=== PATIENT | female | born 1945 | race Caucasian/White ===

== ENCOUNTER → 2018-09-16 | Outpatient (CLI) | payer MEDICARE ==
[~2018-09-16] MED LIST: ANAS1 PO; Anastrozole1 GM PO; BUDE6HFA INH; CITA20 PO; DILT120ERA PO; DOCU100 PO; DULO30 PO; ENAL10 PO; ERGO400 PO; FURO20 PO; Flagyl500 MG PO; IRON PO; LEVFLO500 PO; LEVSOD100 PO; Loperamide2 MG PO; METRIBP PO; Norco 5-325 Ta1 EACH PO; Norco 7.5-3251 EACH PO; OXYACE7.5T PO; POTA8 PO; PRAV20 PO; PROBIOTIC1 EAC1 PO; TIOT18 INH; TOCO400 PO; VITAMIN B122500 MCG PO; Zofran Odt4 MG PO
[2018-09-17 14:05] LABS: Stool Occult Bld Immuno 1 Negative (NEGATIVE)
== END ==
LOC: LAB EV 13:30
PROVIDERS: Student in an Organized Health Care Education/Training Program
DX: D53.9 Nutritional anemia, unspecified (principal)
CPT/HCPCS: 82274

== ENCOUNTER 2019-01-17 12:55 | Inpatient (IN) | payer MEDICARE ==
[~2019-01-17] VITALS: Ht 170.2 cm; Wt 74.8 kg
[~2019-01-17 12:55] MED LIST changes: -LEVSOD100 PO; +LEVSOD125 PO
[2019-01-17] MEDS ORDERED: CARB100ER PO (13:40)
[2019-01-17] MEDS ORDERED: VERA80 PO (13:43)
[2019-01-17] MEDS ORDERED: TRAM50 PO (13:43)
[2019-01-17 15:42] LABS: Thyroid Stimulating Hormone 0.873 uIU/mL (0.360-4.800); Troponin I <0.015 ng/mL (0.000-0.040)
[2019-01-17 16:06] LABS: BASOPHILS ABSOLUTE AUTO 0.07 K/mm3 (0.00-0.23); BASOPHILS PERCENT AUTO 0 % (0-2); EOSINOPHILS ABSOLUTE AUTO 0.03 K/mm3 (0.00-0.68); EOSINOPHILS PERCENT AUTO 0 % (0-6); Hematocrit 26.9 % (33.0-51.0); Hemoglobin 8.6 g/dL (11.5-16.0); IMMATURE GRAN ABSOLUTE AUTO 0.35 K/mm3 (0.00-0.10); IMMATURE GRAN PERCENT AUTO 2 % (0-1); LYMPHOCYTES ABSOLUTE AUTO 0.44 K/mm3 (0.84-5.20); LYMPHOCYTES PERCENT AUTO 2 % (21-46); MONOCYTES ABSOLUTE AUTO 2.04 K/mm3 (0.16-1.47); MONOCYTES PERCENT AUTO 9 % (4-13); Mean Corpuscular HGB 32.6 pg (26.0-34.0); Mean Platelet Volume 9.5 fL (9.1-12.4); NEUTROPHILS ABSOLUTE AUTO 19.12 K/mm3 (1.96-9.15); NEUTROPHILS PERCENT AUTO 87 % (41-73); Platelet Count 391 K/mm3 (150-400); RDW Coefficient Variation 12.5 % (11.7-14.2); RDW Standard Deviation 47.1 fL (35.1-46.3); Red Blood Cell Count 2.64 M/mm3 (3.80-5.20); White Blood Cell Count 22.05 K/mm3 (4.00-11.30)
[2019-01-17 16:24] LABS: Mean Corpuscular Volume 102 fL (80-100)
[2019-01-17 16:36] LABS: Source, Urine Voided
[2019-01-17 16:50] LABS: Blood, Urine 2+ (Neg); Glucose Qualitative, Urine Neg (Neg); Ketones, Urine 2+ (Neg); Leukocyte Esterase, Urine 1+ (Neg); Nitrite, Urine Neg (Neg); Protein, Urine 2+ (Neg); Urobilinogen, Urine 1+ (Normal)
[2019-01-17 16:59] LABS: Bilirubin, Urine 2+ (Neg)
[2019-01-17 17:00] LABS: Appearance, Urine Clear (Clear); Color, Urine Yellow (P-Yellow); Granular Casts 0-2 /lpf (0)
[2019-01-17 17:02] LABS: Bacteria Few /hpf; Squamous Epithelial Cells Rare /hpf (Few)
--- NOTE | 2019-01-17 22:00 | NUR ---
PT TO ICU 3 FROM ED. PT PLEASANT, ALERT, ORIENTED, AND SLIGHTLY CONFUSED. PT ABLE TO STAND AND PIVOT WITH 1-PERSON ASSIST TO USE BEDSIDE COMMODE. PT TIRES EASILY AND IS DYSPNEIC WITH ACTIVITY. PT CURRENTLY ON 3L NC WITH O2 SATS IN THE MID 90'S, 3L O2 USED @ BASELINE AT HOME. PT UP TO BEDSIDE COMMODE AFTER INCONTINENT STOOL. PT STATES SHE HAS HAD DIARRHEA FOR SEVERAL MONTHS NOW BUT THAT SHE "HADN'T THOUGHT ANYTHING OF IT" UNTIL TODAY. PT'S STOOL IS WATERY AND GREEN WITH NO SIGNS OF BLOOD. PT'S STOMACH DISTENDED AND PAINFUL WITH PALPATION, PT STATES THAT SHE "DIDN'T NOTICE IT WAS DISTENDED UNTIL TODAY". PT IS POOR HISTORIAN AND IS UNABLE TO ANSWER QUESTIONS REGARDING HER CURRENT PRESCRIPTIONS OR MEDICAL HISTORY. PT STATES THAT SHE LIVES WITH HER SISTER AND [id number] AND THAT HER SISTER "KNOWS ALL OF THAT STUFF". PT TACHYCARDIC, ALL OTHER VSS. SEE ADMISSION ASSESSMENT AND HISTORY FOR FURTHER INFORMATION.
[2019-01-18 03:11] LABS: C DIFFICILE BY DNA AMP Positive (Negative)
[2019-01-18 03:24] LABS: BASOPHILS ABSOLUTE AUTO 0.07 K/mm3 (0.00-0.23); BASOPHILS PERCENT AUTO 0 % (0-2); EOSINOPHILS ABSOLUTE AUTO 0.08 K/mm3 (0.00-0.68); EOSINOPHILS PERCENT AUTO 0 % (0-6); Hematocrit 29.5 % (33.0-51.0); Hemoglobin 9.1 g/dL (11.5-16.0); IMMATURE GRAN ABSOLUTE AUTO 0.43 K/mm3 (0.00-0.10); IMMATURE GRAN PERCENT AUTO 2 % (0-1); LYMPHOCYTES ABSOLUTE AUTO 0.37 K/mm3 (0.84-5.20); LYMPHOCYTES PERCENT AUTO 2 % (21-46); MONOCYTES ABSOLUTE AUTO 2.99 K/mm3 (0.16-1.47); MONOCYTES PERCENT AUTO 14 % (4-13); Mean Corpuscular HGB 32.3 pg (26.0-34.0); Mean Corpuscular HGB Conc 30.8 g/dL (31.5-36.5); Mean Platelet Volume 9.1 fL (9.1-12.4); NEUTROPHILS ABSOLUTE AUTO 17.74 K/mm3 (1.96-9.15); NEUTROPHILS PERCENT AUTO 82 % (41-73); Platelet Count 384 K/mm3 (150-400); RDW Coefficient Variation 12.6 % (11.7-14.2); RDW Standard Deviation 48.6 fL (35.1-46.3); Red Blood Cell Count 2.82 M/mm3 (3.80-5.20); White Blood Cell Count 21.68 K/mm3 (4.00-11.30)
[2019-01-18 03:25] LABS: Mean Corpuscular Volume 105 fL (80-100)
[2019-01-18 03:50] LABS: Percent Saturation 8.2 % (15.0-50.0)
[2019-01-18 03:58] LABS: Alanine Aminotransfer (ALT/SGP 15 U/L (12-78); Albumin, Blood 2.1 g/dL (3.4-5.0); Albumin/Globulin Ratio 0.6 (0.8-1.8); Alk Phos 135 U/L (50-136); Anion Gap 11 mmol/L (6-16); Aspartate Aminotrans (AST/SGOT 20 U/L (12-37); Bilirubin, Total 0.3 mg/dL (0.1-1.0); Blood Urea Nitrogen 32 mg/dL (8-24); Bun/Creatinine Ratio 21.3 (12.0-20.0); CO2, Blood 22 mmol/L (21-32); Calcium, Blood 7.9 mg/dL (8.5-10.1); Chloride, Blood 99 mmol/L (98-108); Globulin, Blood 3.3 g/dL (2.2-4.0); Glomerular Filtration Rate 36 (60-); Glucose, Blood 145 mg/dL (70-99); Potassium, Blood 3.5 mmol/L (3.5-5.5); Sodium, Blood 132 mmol/L (136-145); Total Protein, Blood 5.4 g/dL (6.4-8.2)
--- NOTE | 2019-01-18 05:15 | NUR ---
CALL TO HOSPITALIST REGARDING PT'S C-DIF+ RESULT. PT PLACED IN CONTACT PRECAUTIONS AND ORDERS FOR ORAL VANCO STARTED. DISCUSSED PT'S INTERMITTENT HYPOTENSION, DR. HERRERA TO DEFER TO [facility] FOR BP MAINTENANCE.
--- NOTE | 2019-01-18 06:04 | NUR ---
SHIFT SUMMARY NO ACUTE CHANGES SINCE ADMISSION TO ICU. PT CONTINUES TO HAVE DIARRHEA-CONTACT PRECAUTIONS IN PLACE D/T C-DIF+ STOOL SAMPLE. PT HAS PERIODS OF HYPOTENSION AND HAS BEEN TACHYCARDIC OVERNIGHT. SATS IN THE MID TO UPPER 90'S ON 3L NC, SLIGHT EXPIRATORY WHEEZE HEARD WHILE SLEEPING. SEE PREVIOUS SHIFT NOTES. WILL REPORT TO DAYSHIFT NURSE.
--- NOTE | 2019-01-18 07:30 | NUR ---
ASSUMED CARE: PT RESTING QUIETLY IN BED AT THIS TIME. 2L O2 IN PLACE, SATTING 99%. ATTEMPTED TO TITRATE OFF BUT PT DESATURATED INTO 80S. REPLACED ON 1 L VIA NC. NO FURTHER NEEDS OR CONCERNS
--- NOTE | 2019-01-18 10:49 | NUR ---
PT WAS ASSISTED TO BSC. 2 DIARRHEA STOOL THIS SHIFT. GRAIN HANDLER SUGGESTED RECTAL TUBE PLACEMENT. ASSESSED PT AND NOTED SEVERAL LARGE HEMORRHOIDS. DECIDED TO CONTINUE TO WATCH SO TO NOT GIVE EXTRA TRAUMA. PT'S SISTER CALLED AND RECIEVED UPDATE. NO FURTHER NEEDS AT THIS TIME.
--- NOTE | 2019-01-18 13:58 | NUR ---
PT'S SISTER CAME BY TO SEE PT AND WAS GIVEN UPDATE ABOUT CARE PLAN AND CURRENT ILLNESS. ALSO DISCUSSED PT'S HOME MEDS WITH SISTER AND WAS PROVIDED WITH NAME OF PHARMACY. CALL TO [employer] TO HAVE MED LIST FAXED. NO FURTHER NEEDS OR CONCERNS AT THIS TIME.
[2019-01-18] MEDS ORDERED: HYDCHL12.5 PO (14:13)
--- NOTE | 2019-01-18 18:43 | NUR ---
SHIFT SUMMARY: PT RECIEVING IV NUTRITION DUE TO POOR APPETITE FOR LAST FEW DAYS. CDIFF WITH PO ANTIBIOTICS GIVEN, FREQUENT BOWEL MOVEMENTS. SISTER GIVEN UPDATES AND WAS HERE OFF AND ON DURING THIS SHIFT. PT HAS BEEN RESTING MOST OF DAY. NO FURTHER CHANGES OR NEEDS AT THIS TIME.
--- NOTE | 2019-01-18 21:46 | NUR ---
ASSUMED CARE OF PT, REPORT RCV'D FROM MIGUELANGEL MANZANO. PT ALERT/ORIENTED BUT APPEARS WITHDRAWN. PT ANSWERS YES/NO QUESTIONS AND SEEMS UNINTERESTED IN ASSISTING WITH CARE. RECTAL TUBE INSERTED AT BEGINNING OF SHIFT D/T PT'S CONTINUED LIQUID STOOL, INCONTINENCE, AND PT'S DYSPNEA WITH EXERTION. D5WNS @50ML/HR, CLINIMIX @75 ML/HR, LIPIDS @20ML/HR. ALL VSS. PT DENIES NEEDS AT THIS TIME. SEE FULL SHIFT ASSESSMENT.
--- NOTE | 2019-01-19 01:48 | NUR ---
PT WAS YELLING OUT "SUSHANT" (HER SISTER), WHEN ASKED IF SHE NEEDED HELP WITH ANYTHING PT RESPONDED "I JUST WANTED TO SEE IF MY SISTER WAS HOME", I REMINDED PT THAT SHE WAS IN THE HOSPITAL AND SHE STATED "I AM? I DON'T EVEN KNOW HOW I GOT HERE". I REORIENTED HER TO TIME/PLACE/SITUATION.
[2019-01-19 03:34] LABS: BASOPHILS ABSOLUTE AUTO 0.11 K/mm3 (0.00-0.23); BASOPHILS PERCENT AUTO 1 % (0-2); EOSINOPHILS ABSOLUTE AUTO 0.11 K/mm3 (0.00-0.68); EOSINOPHILS PERCENT AUTO 1 % (0-6); Hematocrit 29.4 % (33.0-51.0); Hemoglobin 8.9 g/dL (11.5-16.0); IMMATURE GRAN PERCENT AUTO 3 % (0-1); LYMPHOCYTES ABSOLUTE AUTO 0.48 K/mm3 (0.84-5.20); LYMPHOCYTES PERCENT AUTO 3 % (21-46); MONOCYTES ABSOLUTE AUTO 2.17 K/mm3 (0.16-1.47); MONOCYTES PERCENT AUTO 12 % (4-13); Mean Corpuscular HGB 31.8 pg (26.0-34.0); Mean Corpuscular HGB Conc 30.3 g/dL (31.5-36.5); Mean Corpuscular Volume 105 fL (80-100); Mean Platelet Volume 9.3 fL (9.1-12.4); NEUTROPHILS ABSOLUTE AUTO 14.91 K/mm3 (1.96-9.15); NEUTROPHILS PERCENT AUTO 81 % (41-73); Platelet Count 439 K/mm3 (150-400); RDW Coefficient Variation 12.8 % (11.7-14.2); RDW Standard Deviation 49.2 fL (35.1-46.3); White Blood Cell Count 18.38 K/mm3 (4.00-11.30)
[2019-01-19 03:56] LABS: Anion Gap 7 mmol/L (6-16); Blood Urea Nitrogen 31 mg/dL (8-24); Bun/Creatinine Ratio 30.1 (12.0-20.0); CO2, Blood 24 mmol/L (21-32); Calcium, Blood 7.8 mg/dL (8.5-10.1); Chloride, Blood 103 mmol/L (98-108); Creatinine, Blood 1.03 mg/dL (0.40-1.00); Glomerular Filtration Rate 55 (60-); Glucose, Blood 139 mg/dL (70-99); Magnesium, Blood 1.8 mg/dL (1.6-2.4); Phosphorus, Blood 2.7 mg/dL (2.5-4.9); Potassium, Blood 3.4 mmol/L (3.5-5.5); Sodium, Blood 134 mmol/L (136-145); Triglycerides 146 mg/dL (30-160)
--- NOTE | 2019-01-19 06:41 | NUR ---
SHIFT SUMMARY PT IS MUCH MORE ALERT/ORIENTED AND IN GOOD SPIRITS THIS MORNING. PT ABLE TO STATE THAT SHE WAS "AT [facility] BECAUSE OF HER STOMACH" BUT THOUGHT SHE WAS IN "[place] OR [place]". EARLIER IN SHIFT PT WAS CONFUSED ON LOCATION AND SITUATION. (SEE PREVIOUS NOTE) PT TAKING SMALL SIPS OF WATER AND TOLERATING WELL. RECTAL TUBE PATENT, WATERY GREEN STOOL NOTICED IN TUBE AND SMALL AMOUNT IN BAG. PT INCONTINENT OF URINE ON 2 OCCASIONS, ATTENDS IN PLACE. PT REMAINS TACHYCARDIC, BP STABLE AND WNL, ALL OTHER VSS. WILL REPORT TO DAYSHIFT NURSE.
--- NOTE | 2019-01-19 10:14 | NUR ---
0730: CARE ASSUMED, ASSESSMENT COMPLETED. HR 110'S AT THIS TIME, PT DENIES CHEST PAIN/PRESSURE, OTHER VSS. LS CTA, DIM IN BASES, SPO2 >90% ON 2L/NC, PT SOB WITH EXERTION. ABD PAIN MINIMAL, PT STATES ONLY PRESENT WITH PALPATION. D5W 50ML/HR, CLINIMIX 75ML/HR. PT ALERT, ORIENTED TO SELF ONLY, APPROPRIATE AT THIS TIME. ATTENDS CHANGED. 0830: PO MEDICATIONS TOLERATED WELL, PT REFUSING BREAKFAST STATING SHE IS NOT HUNGRY. STATUS REMAINS UNCHANGED. 1000: PT CONFUSED, EXPERIENCING VISUAL HALLUCINATIONS, DC'D OWN IV WITH TIP INTACT. NEW IV INSERTED, FLAGYL RESUMED, POTASSIUM INFUSING. PT REORIENTED, DENIES PAIN, NAUSEA, OR C/O. HR 110, VSS. PT DENIES SOB AT REST. PT REPOSITIONED, SISTER UPDATED ON PT STATUS. SISTER REPORTS PT IS USUALLY ORIENTED TO SELF AND SITUATION AT BASELINE, DENIES PT HAVING HALLUCINATIONS.
--- NOTE | 2019-01-19 13:40 | NUR ---
1215: ATTENDS CHANGED, PT UP TO CHAIR FOR LUNCH WITH 1 PERSON ASSIST. PURSED LIP BREATHING AFTER ACTIVITY, NO DESAT, O2 2L/NC. 1330: PT DRANK MOST OF HER ENSURE, ATE NO OTHER ITEMS OFF OF TRAY. LINENS CHANGED, PT ASSISTED BACK TO BED, BEDBATH GIVEN, NO DESAT WITH ACTIVITY. SISTER AT BEDSIDE TO VISIT, PT TIRED AFTER ACTIVITY, RESTING WITH EYES CLOSED AT THIS TIME. VSS.
--- NOTE | 2019-01-19 16:09 | NUR ---
1500: DR. MCCARTHY AT BEDSIDE, NEW ORDERS RECEIVED. SPOKE WITH SUSHANT, PT'S SISTER. PT SLEEPING AT THIS TIME, HR 100-110 SIT, OTHER VSS. 1610: OT AT BEDSIDE FOR EVAL, PT ALERT, CONFUSED BUT COOPERATIVE. NO HALLUCINATIONS NOTED SINCE THIS MORNING. VSS, PT DENIES PAIN OR NAUSEA AT THIS TIME.
--- NOTE | 2019-01-19 17:33 | NUR ---
1715: REPORT GIVEN TO MIGUELANGEL DE LOS SANTOS. RECTAL TUBE REMOVED PER DR. MCCARTHY, PT TOLERATED WELL. ATTENDS IN PLACE, LIQUID STOOL OUTPUT SMALL THIS SHIFT. PT TO ROOM 312 AT THIS TIME, DENIES ABD PAIN OR NAUSEA, SOB WITH EXERTION, SPO2 93% 2L/NC WITH EXERTION. HR 100-110 SIT. MEDS AND BELONGINGS SENT WITH PT.
--- NOTE | 2019-01-20 04:12 | NUR ---
SHIFT SUMMARY: 73 Y/O OBESE FEMALE RESTED COMFORTABLY ALL SHIFT, PT INCONTINENT LOOSE GREEN STOOLS (CLEANSED UP BY STAFF) AND IS CURRENTLY RECEIVING VANCOMYCIN ORAL EVERY 6 HOURS, DENIES PAIN OR NAUSEA, REQUIRES ASSISTANCE FROM STAFF TO REPOSITION IN BED, TELEMETRY REFLECTS SINUS TACHYCARDIA WITH FIRST DEGREE BUNDLE BRANCH BLOCK, ALERT AND ORIENTED X 4, BED ALARM APPLIED, BED LOW POSITION, CALL LIGHT AT SIDE. CONTACT PRECAUTIONS MAINTAINED FOR C-DIFF.
[2019-01-20 05:06] LABS: Hematocrit 27.1 % (33.0-51.0); Hemoglobin 8.6 g/dL (11.5-16.0); Mean Corpuscular HGB 31.5 pg (26.0-34.0); Mean Corpuscular HGB Conc 31.7 g/dL (31.5-36.5); Mean Platelet Volume 9.2 fL (9.1-12.4); Platelet Count 447 K/mm3 (150-400); RDW Coefficient Variation 12.7 % (11.7-14.2); RDW Standard Deviation 45.7 fL (35.1-46.3); Red Blood Cell Count 2.73 M/mm3 (3.80-5.20); White Blood Cell Count 14.65 K/mm3 (4.00-11.30)
[2019-01-20 05:13] LABS: Mean Corpuscular Volume 99 fL (80-100)
[2019-01-20 05:46] LABS: Alanine Aminotransfer (ALT/SGP 17 U/L (12-78); Albumin, Blood 1.8 g/dL (3.4-5.0); Albumin/Globulin Ratio 0.7 (0.8-1.8); Alk Phos 93 U/L (50-136); Anion Gap 8 mmol/L (6-16); Aspartate Aminotrans (AST/SGOT 11 U/L (12-37); Bilirubin, Total 0.1 mg/dL (0.1-1.0); Blood Urea Nitrogen 36 mg/dL (8-24); Bun/Creatinine Ratio 38.9 (12.0-20.0); CO2, Blood 25 mmol/L (21-32); Calcium, Blood 7.6 mg/dL (8.5-10.1); Chloride, Blood 101 mmol/L (98-108); Creatinine, Blood 0.93 mg/dL (0.40-1.00); Globulin, Blood 2.7 g/dL (2.2-4.0); Glomerular Filtration Rate >60 (60-); Glucose, Blood 119 mg/dL (70-99); Magnesium, Blood 2.1 mg/dL (1.6-2.4); Phosphorus, Blood 2.5 mg/dL (2.5-4.9); Potassium, Blood 3.8 mmol/L (3.5-5.5); Sodium, Blood 134 mmol/L (136-145); Total Protein, Blood 4.5 g/dL (6.4-8.2)
[2019-01-20 06:07] LABS: BAND PERCENT MAN 9 % (0-8); BASOPHILS PERCENT MAN 0 % (0-2); EOSINOPHILS ABSOLUTE MAN 0.58 K/mm3 (0.00-0.68); EOSINOPHILS PERCENT MAN 4 % (0-6); LYMPHOCYTES ABSOLUTE MAN 0.87 K/mm3 (0.84-5.20); LYMPHOCYTES PERCENT MAN 6 % (21-46); METAMYELOCYTE ABSOLUTE MAN 0.14 K/mm3 (0.00-0.00); METAMYELOCYTE PERCENT MAN 1 % (0-0); MONOCYTES ABSOLUTE MAN 1.17 K/mm3 (0.16-1.47); MONOCYTES PERCENT MAN 8 % (4-13); MYELOCYTE ABSOLUTE MAN 0.29 K/mm3 (0.00-0.00); MYELOCYTE PERCENT MAN 2 % (0-0); NEUTROPHILS ABSOLUTE MAN 11.57 K/mm3 (1.96-9.15); SEG NEUTROPHILS PERCENT MAN 70 % (41-73); TOTAL CELLS COUNTED 100
--- NOTE | 2019-01-20 17:32 | NUR ---
Palliative Spiritual Care intial visit: Mrs. Carr was alone in room and welcoming of companioship. She tells me she is normally healthy and is hospitalized b/c of "stomach bug." She tells me she feels better and is hopeful to return home soon. She lives with her brother and sister. They are good support. Mrs. Arceo declined needs or concerns. She is non-zoroastrianism, but responded well to encouragement and affirmation of care. I will remain available.
--- NOTE | 2019-01-20 18:06 | NUR ---
SHIFT SUMMARY BILLY WAS CALM AND COOPERATIVE THIS SHIFT. SHE WAS FORGETFUL AND SLIGHTLY CONFUSED, BUT ORIENTED WHEN GIVEN LOTS OF TIME TO ANSWER. 4 BM THIS SHIFT, CONTINENT/INCONTINENT. AO1 TO BSC. ON 2 L OXYGEN. WORKED WITH PT AND OT TODAY. SISTER AND BROTHER IN LAW VISITED. DENIED PAIN. VERY POOR APPETITE, PPN RUNNING. TELE DC'D. CALL LIGHT IN REACH, [facility]
--- NOTE | 2019-01-21 04:11 | NUR ---
SHIFT SUMMARY: 73 Y/O FEMALE RESTED COMFORTABLY ALL SHIFT WITH ONLY ONE EPISODE BOWEL INCONTINENCE--SMALL AMOUNT GREEN COLORED STOOL, CONTACT PRECAUTIONS MAINTAINED FOR C-DIFF, PT HAD POOR APPETITE LAST NIGHT WITH DINNER TRAY NOT TOUCHED, CONTINUES TO RECEIVE PPN AT 96 ML/HR, ALERT AND ORIENTED X2, DENIES PAIN OR NAUSEA, FOLLOWS ALL SIMPLE VERBAL COMMANDS, BED ALARM APPLIED, BED LOW POSITION, CALL LIGHT AT SIDE.
[2019-01-21 05:19] LABS: Magnesium, Blood 2.1 mg/dL (1.6-2.4); Phosphorus, Blood 2.5 mg/dL (2.5-4.9)
--- NOTE | 2019-01-21 09:30 | NUR ---
PT PLEASANT COOP A/O. DENIES PAIN . PPN RUNNING IN RT AC. TALKATIVE. H/R REG, NO MURMER NOTED. NO TELE. LUNGS CLEAR, RESP EASY, UNLABORED. ON 2L O2. BT X4 LAST BM LAST NITE. STATES SLOWING DOWN. VIODS PER BSC. 1 ASST. BED IN LOW POSITION, CALL LITE IN REACH, CALLS APPROP. DR DESOUZA TO ROOM. ADVISED TO QUIT PPN AFTER THIS BAG.
--- NOTE | 2019-01-21 15:23 | NUR ---
IV LOST. CALLED DR HICKS RE NO IV. TC
--- NOTE | 2019-01-21 15:54 | NUR ---
DR HICKS ORDERS OKAY NO IV.
--- NOTE | 2019-01-21 18:17 | NUR ---
PT QUITE PLEASANT TODAY. ENCOURAGING TO EAT MORE. DR HICKS OKAYED NO IV. TPN STOPPED WHEN LOST IV. SISTER IN TO VISIT TODAY. NO OTHER CONCERNS AT THIS TIME. BED IN LOW POSITION, CALL LITE IN REACH, CALLS APPROP
--- NOTE | 2019-01-22 04:30 | NUR ---
SHIFT SUMMARY: 73 Y/O FEMALE RESTED COMFORTABLY ALL SHIFT IN BED WITH LOOSE BOWEL MOVEMENTS X1 NOTED, SMALL AMOUNTS, ALERT TO ORIENTED X 2, ABLE TO FOLLOW SIMPLE VERBAL COMMANDS, RINGS CALL LIGHT FOR ASSISTANCE, DENIES PAIN OR NAUSEA, BED ALARM APPLIED, CALL LIGHT AT SIDE WITH BED IN LOW POSITION.
--- NOTE | 2019-01-22 08:45 | NUR ---
PT QUITE PLEASANT TALKATIVE THIS AM. DID ENCOURAGE TO EAT AND DRINK. BROUGHT HER SOME LEMONAIDE. DISCUSSED ALL FOOD OPTIONS AVAIL I COULD OFFER FROM [employer]. NOTHING SOUNDS GOOD. H/R IS IRREG, NO MURMER NOTED. NO TELE. LUNGS CLEAR, RESP EASY, UNLABORED. ON 2L O2. BT X4 LAST BM LAST NITE. REPORT FROM RN INDICATED ONLY 1 OR 2 BM LOOSE, MUCOUSY, LAST NITE. VOIDS 1 ASST TO BSC. NO OTHER CONCERNS AT THIS TIME. BED IN LOW POSITION, ALL LITE IN REACH, CALLS APPROP
[2019-01-22] MEDS ORDERED: ASCO500 PO (12:18)
[2019-01-22] MEDS ORDERED: CARV6.25 PO (12:18)
[2019-01-22] MEDS ORDERED: FOLI1 PO (12:18)
[2019-01-22] MEDS ORDERED: FERSU300 PO (12:18)
[2019-01-22] MEDS ORDERED: VANCOMYCIN PO (12:34)
[2019-01-22] MEDS ORDERED: Florastor250 MG PO (12:34)
--- NOTE | 2019-01-22 13:31 | NUR ---
[facility] CALLED . NO LIQUID VANCO AVAIL. PILLS OKAY?. CALLED DR HICKS. OKAYED PILLS. CHECK COST OKAY. CALLED [facility]. PILLS OKAY, COST $137 PRIOR TO INSURANCE, WONT KNOW UNTIL AFTER BILLED. TALKED TO PT. OKAY WITH $137. CALLED [facility]. OKAY WITH PILLS.
--- NOTE | 2019-01-22 15:39 | NUR ---
DISCHARGE REVIEWED WITH PT AND SISTER. THEY VERBALIZED UNDERSTANDING. MEDS AND INSTRUCTIONS. NO IV, NO TELE. SISTER ASSISTED HER IN DRESSING. I WHEELED PT TO DOOR AT [id number]
== END 2019-01-22 15:53 | disposition home health service (06) | DRG 872 ==
LOC: ER 12:55 → MEDS 17:14 → ERHOLD 17:14 → ER 17:14 → ICUE 21:00 → MEDS 01-19 17:33 → ENPENDDIS 01-22 11:39 → MEDS 01-22 15:53
PROVIDERS: Emergency Medicine; Hospitalist; ADMIT Internal Medicine
DX: A41.89 Other specified sepsis (principal); A04.72 Enterocolitis due to Clostridium difficile, not specified as recurrent; J96.11 Chronic respiratory failure with hypoxia; E87.1 Hypo-osmolality and hyponatremia; N17.9 Acute kidney failure, unspecified; I13.0 Hypertensive heart and chronic kidney disease with heart failure and stage 1 through stage 4 chronic kidney disease, or unspecified chronic kidney disease; I50.32 Chronic diastolic (congestive) heart failure; E44.0 Moderate protein-calorie malnutrition; J44.9 Chronic obstructive pulmonary disease, unspecified; E53.8 Deficiency of other specified B group vitamins; D63.1 Anemia in chronic kidney disease; E11.22 Type 2 diabetes mellitus with diabetic chronic kidney disease; N18.3 Chronic kidney disease, stage 3 (moderate); E86.9 Volume depletion, unspecified; Z99.81 Dependence on supplemental oxygen; Z66 Do not resuscitate; R65.20 Severe sepsis without septic shock; Z87.891 Personal history of nicotine dependence; Z85.3 Personal history of malignant neoplasm of breast; F32.9 Major depressive disorder, single episode, unspecified; E03.9 Hypothyroidism, unspecified; E78.5 Hyperlipidemia, unspecified; M54.5 Low back pain; G89.29 Other chronic pain; D75.89 Other specified diseases of blood and blood-forming organs; G50.0 Trigeminal neuralgia; E88.09 Other disorders of plasma-protein metabolism, not elsewhere classified; I25.10 Atherosclerotic heart disease of native coronary artery without angina pectoris; E87.6 Hypokalemia; Z68.23 Body mass index [BMI] 23.0-23.9, adult
CPT/HCPCS: 36415; 51701; 71045; 71046; 74176; 80048; 80053; 81001; 82272; 82607; 82728; 82746; 82947; 83540; 83550; 83605; 83735; 83880; 84100; 84443; 84478; 84484; 85025; 85045; 87040; 87324; 87493; 93005; 93010; 94640; 94760; 96365-59; 96375-59; 97110; 97116; 97161; 97166; 97530; 97535; 99285-25; C9113; J0744; J3411; J3480; J7042; J7050

== ENCOUNTER → 2019-01-31 | Outpatient (CLI) | payer MEDICARE ==
[~2019-01-31] MED LIST changes: +ASCO500 PO; +CARB100ER PO; +CARV6.25 PO; +FERSU300 PO; +FOLI1 PO; +Florastor250 MG PO; +HYDCHL12.5 PO; +TRAM50 PO; +VANCOMYCIN PO; +VERA80 PO
[2019-01-31 18:45] LABS: BASOPHILS ABSOLUTE AUTO 0.07 K/mm3 (0.00-0.23); BASOPHILS PERCENT AUTO 1 % (0-2); EOSINOPHILS ABSOLUTE AUTO 0.41 K/mm3 (0.00-0.68); EOSINOPHILS PERCENT AUTO 6 % (0-6); Hematocrit 27.8 % (33.0-51.0); Hemoglobin 8.5 g/dL (11.5-16.0); IMMATURE GRAN ABSOLUTE AUTO 0.06 K/mm3 (0.00-0.10); IMMATURE GRAN PERCENT AUTO 1 % (0-1); LYMPHOCYTES ABSOLUTE AUTO 0.78 K/mm3 (0.84-5.20); LYMPHOCYTES PERCENT AUTO 11 % (21-46); MONOCYTES ABSOLUTE AUTO 0.73 K/mm3 (0.16-1.47); MONOCYTES PERCENT AUTO 11 % (4-13); Mean Corpuscular HGB 32.2 pg (26.0-34.0); Mean Corpuscular HGB Conc 30.6 g/dL (31.5-36.5); Mean Corpuscular Volume 105 fL (80-100); Mean Platelet Volume 9.2 fL (9.1-12.4); NEUTROPHILS ABSOLUTE AUTO 4.79 K/mm3 (1.96-9.15); NEUTROPHILS PERCENT AUTO 70 % (41-73); Platelet Count 501 K/mm3 (150-400); RDW Coefficient Variation 14.1 % (11.7-14.2); RDW Standard Deviation 54.1 fL (35.1-46.3); Red Blood Cell Count 2.64 M/mm3 (3.80-5.20); White Blood Cell Count 6.84 K/mm3 (4.00-11.30)
[2019-01-31 19:26] LABS: Alanine Aminotransfer (ALT/SGP 19 U/L (12-78); Albumin, Blood 2.4 g/dL (3.4-5.0); Albumin/Globulin Ratio 0.8 (0.8-1.8); Alk Phos 57 U/L (50-136); Anion Gap 3 mmol/L (6-16); Aspartate Aminotrans (AST/SGOT 18 U/L (12-37); Bilirubin, Total 0.2 mg/dL (0.1-1.0); Blood Urea Nitrogen 11 mg/dL (8-24); Bun/Creatinine Ratio 15.2 (12.0-20.0); CO2, Blood 36 mmol/L (21-32); Calcium, Blood 8.4 mg/dL (8.5-10.1); Chloride, Blood 101 mmol/L (98-108); Creatinine, Blood 0.72 mg/dL (0.40-1.00); Globulin, Blood 2.9 g/dL (2.2-4.0); Glomerular Filtration Rate >60 (60-); Glucose, Blood 110 mg/dL (70-99); Potassium, Blood 3.7 mmol/L (3.5-5.5); Sodium, Blood 140 mmol/L (136-145); Total Protein, Blood 5.3 g/dL (6.4-8.2)
== END | disposition home or self-care (01) ==
LOC: LAB 17:00 → LAB SHORT 17:00
PROVIDERS: Internal Medicine
DX: A04.72 Enterocolitis due to Clostridium difficile, not specified as recurrent (principal); R06.02 Shortness of breath
CPT/HCPCS: 80053; 83880; 85025

== ENCOUNTER → 2019-03-03 | Outpatient (CLI) | payer MEDICARE ==
[2019-03-04 14:42] LABS: C DIFFICILE BY DNA AMP Positive (Negative)
== END | disposition home or self-care (01) ==
LOC: LAB EV 14:00
PROVIDERS: Internal Medicine Hematology & Oncology
DX: C50.919 Malignant neoplasm of unspecified site of unspecified female breast (principal)
CPT/HCPCS: 87324; 87493

== ENCOUNTER → 2019-03-05 | Outpatient (CLI) | payer MEDICARE ==
[2019-03-05 13:04] LABS: BASOPHILS ABSOLUTE AUTO 0.07 K/mm3 (0.00-0.23); BASOPHILS PERCENT AUTO 1 % (0-2); EOSINOPHILS ABSOLUTE AUTO 0.69 K/mm3 (0.00-0.68); EOSINOPHILS PERCENT AUTO 9 % (0-6); Hematocrit 30.8 % (33.0-51.0); Hemoglobin 9.6 g/dL (11.5-16.0); IMMATURE GRAN ABSOLUTE AUTO 0.03 K/mm3 (0.00-0.10); IMMATURE GRAN PERCENT AUTO 0 % (0-1); LYMPHOCYTES PERCENT AUTO 9 % (21-46); MONOCYTES ABSOLUTE AUTO 0.77 K/mm3 (0.16-1.47); MONOCYTES PERCENT AUTO 10 % (4-13); Mean Corpuscular HGB 32.4 pg (26.0-34.0); Mean Corpuscular HGB Conc 31.2 g/dL (31.5-36.5); Mean Corpuscular Volume 104 fL (80-100); Mean Platelet Volume 9.3 fL (9.1-12.4); NEUTROPHILS ABSOLUTE AUTO 5.51 K/mm3 (1.96-9.15); NEUTROPHILS PERCENT AUTO 71 % (41-73); Platelet Count 315 K/mm3 (150-400); RDW Coefficient Variation 13.6 % (11.7-14.2); RDW Standard Deviation 51.8 fL (35.1-46.3); Red Blood Cell Count 2.96 M/mm3 (3.80-5.20); White Blood Cell Count 7.77 K/mm3 (4.00-11.30)
[2019-03-05 13:14] LABS: Alanine Aminotransfer (ALT/SGP 26 U/L (12-78); Albumin/Globulin Ratio 0.9 (0.8-1.8); Alk Phos 86 U/L (40-126); Anion Gap 3 mmol/L (6-16); Aspartate Aminotrans (AST/SGOT 19 U/L (12-37); Bilirubin, Total 0.3 mg/dL (0.1-1.0); Blood Urea Nitrogen 13 mg/dL (8-24); Bun/Creatinine Ratio 15.5 (12.0-20.0); CO2, Blood 35 mmol/L (21-32); Calcium, Blood 9.1 mg/dL (8.5-10.1); Chloride, Blood 102 mmol/L (98-108); Creatinine, Blood 0.84 mg/dL (0.40-1.00); Globulin, Blood 3.3 g/dL (2.2-4.0); Glomerular Filtration Rate >60 (60-); Glucose, Blood 111 mg/dL (70-99); Potassium, Blood 3.6 mmol/L (3.5-5.5); Sodium, Blood 140 mmol/L (136-145); Total Protein, Blood 6.3 g/dL (6.4-8.2)
== END ==
LOC: LAB EV 12:59 → LAB SHORT 12:59
PROVIDERS: Emergency Medicine
DX: R19.7 Diarrhea, unspecified (principal)
CPT/HCPCS: 80053; 85025

== ENCOUNTER → 2019-05-23 | Outpatient (CLI) | payer MEDICARE | END | disposition home or self-care (01) | LOC: PLD 07:51 → LAB SHORT 07:51 | DX: L57.0 Actinic keratosis (principal); L57.8 Other skin changes due to chronic exposure to nonionizing radiation | CPT/HCPCS: 88305 ==

== ENCOUNTER → 2019-05-23 | Outpatient (CLI) | payer MEDICARE | END | disposition home or self-care (01) | LOC: LAB SHORT 14:00 → LAB 14:00 | DX: L08.0 Pyoderma (principal) | CPT/HCPCS: 87070; 87077; 87147; 87186; 87205 ==

== ENCOUNTER 2019-12-21 18:29 | Inpatient (IN) | payer MEDICARE ==
[~2019-12-21] VITALS: Ht 165.1 cm; Wt 67.7 kg
[~2019-12-21 18:29] MED LIST changes: +ALBU90OI INH; +GUAI600T33 PO; -LEVSOD125 PO; +LEVSOD25 PO; +Mupirocin22 GM TOP; +Prednisone10 MG PO
[2019-12-21] MEDS ORDERED: TIOT18 INH (18:49)
[2019-12-21] MEDS ORDERED: PRAV20 PO (18:49)
[2019-12-21] MEDS ORDERED: SYMBICORT 160-4.6 GM INH (18:49)
[2019-12-21] MEDS ORDERED: DULO30 PO (18:50)
[2019-12-21] MEDS ORDERED: CARBAMAZEPINE100 M1 PO (18:50)
[2019-12-21] MEDS ORDERED: ANAS1 PO (18:50)
[2019-12-21] MEDS ORDERED: CARVEDILOL12.5 MG PO (18:50)
[2019-12-21] MEDS ORDERED: ALBU90OI INH (18:51)
[2019-12-21] MEDS ORDERED: EUTHYROX125 MCG PO (18:52)
[2019-12-21] MEDS ORDERED: FERSU300 PO (18:52)
[2019-12-21] MEDS ORDERED: FOLI1 PO (18:52)
[2019-12-21] MEDS ORDERED: Vitamin B-121000 MCG PO (18:53)
[2019-12-21] MEDS ORDERED: ASCO500 PO (18:53)
[2019-12-21] MEDS ORDERED: Florastor250 MG PO (18:53)
[2019-12-21 18:54] LABS: BASOPHILS ABSOLUTE AUTO 0.07 K/mm3 (0.00-0.23); BASOPHILS PERCENT AUTO 1 % (0-2); EOSINOPHILS ABSOLUTE AUTO 0.89 K/mm3 (0.00-0.68); EOSINOPHILS PERCENT AUTO 13 % (0-6); Hematocrit 38.6 % (33.0-51.0); Hemoglobin 11.8 g/dL (11.5-16.0); IMMATURE GRAN ABSOLUTE AUTO 0.02 K/mm3 (0.00-0.10); IMMATURE GRAN PERCENT AUTO 0 % (0-1); LYMPHOCYTES PERCENT AUTO 13 % (21-46); MONOCYTES ABSOLUTE AUTO 0.85 K/mm3 (0.16-1.47); MONOCYTES PERCENT AUTO 13 % (4-13); Mean Corpuscular HGB 31.7 pg (26.0-34.0); Mean Corpuscular HGB Conc 30.6 g/dL (31.5-36.5); Mean Corpuscular Volume 104 fL (80-100); Mean Platelet Volume 9.1 fL (9.1-12.4); NEUTROPHILS ABSOLUTE AUTO 4.04 K/mm3 (1.96-9.15); NEUTROPHILS PERCENT AUTO 60 % (41-73); Platelet Count 281 K/mm3 (150-400); RDW Coefficient Variation 11.7 % (11.7-14.2); RDW Standard Deviation 44.4 fL (35.1-46.3); Red Blood Cell Count 3.72 M/mm3 (3.80-5.20); White Blood Cell Count 6.77 K/mm3 (4.00-11.30)
[2019-12-21 19:14] LABS: Alanine Aminotransfer (ALT/SGP 25 U/L (12-78); Albumin, Blood 3.4 g/dL (3.4-5.0); Alk Phos 59 U/L (50-136); Anion Gap 2 mmol/L (6-16); Aspartate Aminotrans (AST/SGOT 16 U/L (12-37); Bilirubin, Total 0.9 mg/dL (0.1-1.0); Blood Urea Nitrogen 13 mg/dL (8-24); Bun/Creatinine Ratio 17.2 (12.0-20.0); CO2, Blood 36 mmol/L (21-32); Calcium, Blood 8.8 mg/dL (8.5-10.1); Chloride, Blood 99 mmol/L (98-108); Creatinine, Blood 0.75 mg/dL (0.40-1.00); Globulin, Blood 3.3 g/dL (2.2-4.0); Glomerular Filtration Rate >60 (60-); Glucose, Blood 100 mg/dL (70-99); Sodium, Blood 137 mmol/L (136-145); Total Protein, Blood 6.7 g/dL (6.4-8.2); Troponin I 0.033 ng/mL (0.000-0.040)
[2019-12-21 21:15] LABS: PO2 Arterial 103 mmHg (80-100)
[2019-12-21 21:16] LABS: PCO2 Arterial 74.9 mmHg (35-45)
[2019-12-21] MEDS ORDERED: ALBU2.5V5 NEB (21:43)
--- NOTE | 2019-12-22 05:34 | NUR ---
SHIFT SUMMARY PT SLEEPING IN ROOM COMFORTABLY AT THIS TIME. NO ACUTE CHANGES IN STATUS SINCE ARRIVAL. PT SLEPT WELL DENIED ANY CP OR SOB. RESP EVEN UNLABORED ON 3L NC W/ SATS >92%. BIPAP IN ROOM FOR RESCUE. PT HAS HX OF DEMENTIA AND IS AWARE TO SELF, EVENT AND YEAR, BUT THINKS SHE IS IN [place] AND CANNOT STATE DAY OR MONTH. BED ALARM IS ON FOR SAFETY. CALL LIGHT IN REACH.
--- NOTE | 2019-12-22 06:30 | NUR ---
PT FALL THIS RN WAS COMING OUT OF ANOTHER PT ROOM AFTER PASSING MEDS. HEARD LOUD CRASH AND IMMEDIATELY RAN TO RM 16. PT WAS FOUND DOWN ON FLOOR BY DOOR TO ROOM LYING ON LEFT SIDE. MULTIPLE STAFF TO ROOM. PT DENIED HITTING HEAD. PT IS IN ETOH WITHDRAW AND REPORTED "I WAS GOING AFTER THE CANDY THAT RAN AWAY". HEAD CHECKED FOR INJURIES NO NEW INJURIES APPARENT. PT DENIED ANY PAIN TO HEAD AND NECK, REPORTS LANDED ON HIS SHOULDER. PT WAS ASSITED BACK TO BED AND AYLA VEST WAS PLACED. PT CIWA 18 AT THIS TIME. PROVIDER CALLED FOR RESTRAINT ORDER, PT MOVED FROM RM 16 TO RM 10 FOR CLOSER OBSERVATION. FALL PAPERWORK COMPLETED WITH ASSAULT AMPHIBIOUS VEHICLE CREWMAN. BED ALARM ON PT AND AYLA VEST IN PLACE AND SECURE. BED ALARM HAD BEEN IN USE T/O NIGHT AND HAD BEEN SET 10 MIN PRIOR TO FALL BY THIS RN AFTER LINEN CHANGE AND PT USING URINAL. PT HAD BEEN EDUCATED T/O NIGHT ABOUT NOT GETTING OUT OF BED.
[2019-12-22 07:08] LABS: BASOPHILS ABSOLUTE AUTO 0.01 K/mm3 (0.00-0.23); BASOPHILS PERCENT AUTO 0 % (0-2); EOSINOPHILS PERCENT AUTO 0 % (0-6); Hematocrit 38.1 % (33.0-51.0); Hemoglobin 11.8 g/dL (11.5-16.0); IMMATURE GRAN ABSOLUTE AUTO 0.01 K/mm3 (0.00-0.10); IMMATURE GRAN PERCENT AUTO 0 % (0-1); LYMPHOCYTES ABSOLUTE AUTO 0.43 K/mm3 (0.84-5.20); LYMPHOCYTES PERCENT AUTO 8 % (21-46); MONOCYTES ABSOLUTE AUTO 0.04 K/mm3 (0.16-1.47); MONOCYTES PERCENT AUTO 1 % (4-13); Mean Corpuscular Volume 103 fL (80-100); Mean Platelet Volume 9.3 fL (9.1-12.4); NEUTROPHILS ABSOLUTE AUTO 4.86 K/mm3 (1.96-9.15); NEUTROPHILS PERCENT AUTO 91 % (41-73); Platelet Count 285 K/mm3 (150-400); RDW Coefficient Variation 11.7 % (11.7-14.2); RDW Standard Deviation 44.4 fL (35.1-46.3); Red Blood Cell Count 3.69 M/mm3 (3.80-5.20); White Blood Cell Count 5.35 K/mm3 (4.00-11.30)
[2019-12-22 07:25] LABS: Anion Gap 4 mmol/L (6-16); Blood Urea Nitrogen 13 mg/dL (8-24); Bun/Creatinine Ratio 17.3 (12.0-20.0); CO2, Blood 36 mmol/L (21-32); Chloride, Blood 99 mmol/L (98-108); Creatinine, Blood 0.75 mg/dL (0.40-1.00); Glomerular Filtration Rate >60 (60-); Glucose, Blood 135 mg/dL (70-99); Sodium, Blood 139 mmol/L (136-145)
--- NOTE | 2019-12-22 11:45 | NUR ---
Spiritual care visit conducted. Patient is lying in bed and alert. Patient tells me that she is exhausted form the many interuptions and the horrible bed. I explain that I don't want to be just another interuption but I ask if I could say a prayer for her. Patient says, "Please do." I gladly provide prayer. Patient verbalizes appreciation for the prayer. I will continue to remain available to patient and family.
--- NOTE | 2019-12-22 18:00 | NUR ---
PATIENT TRNSFERRED TO ROOM 329 VIA AT THIS TIME. REPORT CALLED TO MIGUELANGEL ELLIOTT. NO C/O AT THIS TIME. SISTER NOTIFIED OF TRANSFER BY CN.
--- NOTE | 2019-12-22 19:15 | NUR ---
ASSUMED CARE RECEIVED REPORT FROM MIGUELANGEL KIMBROUGH. ASSUMED CARE OF PT. RESTING COMFORTABLY AT THIS TIME, NO S/S ACUTE DISTRESS NOTED. RESPS EVEN AND UNLABORED. DENIES NEEDS AT THIS TIME, CALL LIGHT, POSSESSIONS IN REACH. WILL CONTINUE TO MONITOR.
--- NOTE | 2019-12-23 04:28 | NUR ---
SHIFT SUMMARY PT HAS HAD AN UNEVENTFUL NIGHT, NO ACUTE CHANGES NOTED. VS STABLE, O2 SATS STABLE ON 2L/NC, BETWEEN 94-98%. NO C/O SOB, DYSPNEA. ASLEEP AT THIS TIME. CALL LIGHT, POSSESSIONS IN REACH, BED IN LOWEST POSITION WITH ALARMS ON. WILL CONTINUE TO MONITOR UNTIL DAY RN ASSUMES CARE.
[2019-12-23 05:43] LABS: BASOPHILS PERCENT AUTO 0 % (0-2); EOSINOPHILS PERCENT AUTO 0 % (0-6); Hematocrit 37.5 % (33.0-51.0); Hemoglobin 11.5 g/dL (11.5-16.0); IMMATURE GRAN ABSOLUTE AUTO 0.05 K/mm3 (0.00-0.10); IMMATURE GRAN PERCENT AUTO 1 % (0-1); LYMPHOCYTES ABSOLUTE AUTO 0.35 K/mm3 (0.84-5.20); LYMPHOCYTES PERCENT AUTO 4 % (21-46); MONOCYTES PERCENT AUTO 3 % (4-13); Mean Corpuscular HGB 31.6 pg (26.0-34.0); Mean Corpuscular HGB Conc 30.7 g/dL (31.5-36.5); Mean Corpuscular Volume 103 fL (80-100); Mean Platelet Volume 9.3 fL (9.1-12.4); NEUTROPHILS ABSOLUTE AUTO 8.94 K/mm3 (1.96-9.15); NEUTROPHILS PERCENT AUTO 93 % (41-73); Platelet Count 294 K/mm3 (150-400); RDW Coefficient Variation 11.7 % (11.7-14.2); RDW Standard Deviation 44.4 fL (35.1-46.3); Red Blood Cell Count 3.64 M/mm3 (3.80-5.20); White Blood Cell Count 9.64 K/mm3 (4.00-11.30)
[2019-12-23 06:13] LABS: Magnesium, Blood 2.1 mg/dL (1.6-2.4)
[2019-12-23 06:21] LABS: Anion Gap 0 mmol/L (6-16); Blood Urea Nitrogen 18 mg/dL (8-24); Bun/Creatinine Ratio 20.7 (12.0-20.0); CO2, Blood 37 mmol/L (21-32); Calcium, Blood 8.9 mg/dL (8.5-10.1); Chloride, Blood 101 mmol/L (98-108); Creatinine, Blood 0.87 mg/dL (0.40-1.00); Glomerular Filtration Rate >60 (60-); Glucose, Blood 129 mg/dL (70-99); Phosphorus, Blood 3.8 mg/dL (2.5-4.9); Potassium, Blood 4.2 mmol/L (3.5-5.5); Sodium, Blood 138 mmol/L (136-145)
--- NOTE | 2019-12-24 07:17 | NUR ---
SHIFT SUMMARY: VSS. SHOEMAKERKERRI. AAOX3. 02 SATS 95-98% ON 2L VIA NC. PT REFUSED TO WEAR BIPAP OVERNIGHT. LS DIM. PT STATES SHE IS HOPING TO D/C TODAY. NO ACUTE CHANGES OVERNIGHT. WILL CONT TO MONIOTR.
[2019-12-24] MEDS ORDERED: DOXY100 PO (09:36)
[2019-12-24] MEDS ORDERED: Prednisone10 MG PO (09:37)
--- NOTE | 2019-12-24 13:23 | NUR ---
DISCHARGE PT DISCHARGED TO HOME. THIS RN EXPLAINED DISCHARGE INSTRUCTIONS AND MEDICATIONS TO PT AND SHE REPORTS SHE UNDERSTANDS. IV REMOVED WITHOUT DIFFICULTY. PT TRANSFERRED TO PRIVATE VEHICLE VIA WHEELCHAIR BY DYNAMOMETER REPAIRER. PT'S BELONGINGS WITH PT'S SISTER.
== END 2019-12-24 13:22 | disposition home or self-care (01) | DRG 189 ==
LOC: ER 18:29 → PCU 22:46 → MEDS 12-22 18:07 → ENPENDDIS 12-24 09:37 → MEDS 12-24 13:22
PROVIDERS: Hospitalist; Nurse Practitioner Acute Care; Physician Assistant; Student in an Organized Health Care Education/Training Program; ADMIT Internal Medicine
PROC: 5A09357 Assistance with Respiratory Ventilation, Less than 24 Consecutive Hours, Continuous Positive Airway Pressure (ICD-10-PCS; principal; 2019-12-21)
DX: J96.21 Acute and chronic respiratory failure with hypoxia (principal); J44.1 Chronic obstructive pulmonary disease with (acute) exacerbation; E87.2 Acidosis; E78.5 Hyperlipidemia, unspecified; F32.9 Major depressive disorder, single episode, unspecified; G50.0 Trigeminal neuralgia; D47.2 Monoclonal gammopathy; Z99.81 Dependence on supplemental oxygen; E03.9 Hypothyroidism, unspecified; I10 Essential (primary) hypertension; Z87.891 Personal history of nicotine dependence
CPT/HCPCS: 36415; 36600; 71045; 80048; 80053; 82803; 82947; 83735; 83880; 84100; 84484; 85025; 93005; 93010; 93306; 94640; 94644; 94660; 94760; 94762; 96372; 96374; 96376; 97112; 97162; 99285-25; G0378; J1650; J2930; J7512

== ENCOUNTER → 2021-05-29 | Outpatient (CLI) | payer MEDICARE ==
[~2021-05-29] MED LIST changes: +ALBU2.5V5 NEB; +CARBAMAZEPINE100 M1 PO; +CARVEDILOL12.5 MG PO; +DOXY100 PO; +EUTHYROX125 MCG PO; +SYMBICORT 160-4.6 GM INH; +Vitamin B-121000 MCG PO
== END ==
LOC: LAB SHORT 10:23
DX: D48.5 Neoplasm of uncertain behavior of skin (principal); L57.0 Actinic keratosis
CPT/HCPCS: 88305

== ENCOUNTER 2021-07-22 09:33 | Emergency (ER) | payer MEDICARE ==
[~2021-07-22] VITALS: Ht 170.2 cm; Wt 83.9 kg
[2021-07-22] MEDS ORDERED: ANASTROZOLE1 M7 PO (09:53)
[2021-07-22] MEDS ORDERED: ROFL500T PO (09:53)
[2021-07-22] MEDS ORDERED: LEVO-T125 MC1 PO (09:53)
[2021-07-22] MEDS ORDERED: SYMBICORT 16010.2 GM INH (09:54)
[2021-07-22] MEDS ORDERED: DULOXETINE HCL60 M1 PO (09:54)
[2021-07-22] MEDS ORDERED: FOLI1 PO (09:55)
[2021-07-22] MEDS ORDERED: PRAV20 PO (09:55)
[2021-07-22] MEDS ORDERED: PRED20 PO (09:55)
[2021-07-22] MEDS ORDERED: FUROSEMIDE20 MG PO (09:55)
[2021-07-22] MEDS ORDERED: POTCHL20ER PO (09:55)
[2021-07-22] MEDS ORDERED: FERROUS SULFAT325 M3 PO (09:56)
[2021-07-22] MEDS ORDERED: CARBAMAZEPINE100 M6 PO (09:56)
[2021-07-22] MEDS ORDERED: Carvedilol12.5 MG PO (09:58)
[2021-07-22 10:24] LABS: BASOPHILS ABSOLUTE AUTO 0.05 K/mm3 (0.00-0.23); BASOPHILS PERCENT AUTO 0 % (0-2); EOSINOPHILS ABSOLUTE AUTO 0.16 K/mm3 (0.00-0.68); EOSINOPHILS PERCENT AUTO 1 % (0-6); Hematocrit 36.4 % (33.0-51.0); Hemoglobin 11.1 g/dL (11.5-16.0); IMMATURE GRAN ABSOLUTE AUTO 0.07 K/mm3 (0.00-0.10); IMMATURE GRAN PERCENT AUTO 1 % (0-1); LYMPHOCYTES ABSOLUTE AUTO 0.71 K/mm3 (0.84-5.20); LYMPHOCYTES PERCENT AUTO 6 % (21-46); MONOCYTES ABSOLUTE AUTO 1.05 K/mm3 (0.16-1.47); MONOCYTES PERCENT AUTO 9 % (4-13); Mean Corpuscular HGB Conc 30.5 g/dL (31.5-36.5); Mean Corpuscular Volume 108 fL (80-100); Mean Platelet Volume 9.7 fL (9.1-12.4); NEUTROPHILS ABSOLUTE AUTO 9.43 K/mm3 (1.96-9.15); NEUTROPHILS PERCENT AUTO 82 % (41-73); Platelet Count 282 K/mm3 (150-400); RDW Coefficient Variation 12.2 % (11.7-14.2); RDW Standard Deviation 48.4 fL (35.1-46.3); Red Blood Cell Count 3.36 M/mm3 (3.80-5.20); White Blood Cell Count 11.47 K/mm3 (4.00-11.30)
[2021-07-22 10:28] LABS: Alanine Aminotransfer (ALT/SGP 28 U/L (12-78); Alk Phos 37 U/L (50-136); Anion Gap 4 mmol/L (6-16); Aspartate Aminotrans (AST/SGOT 21 U/L (12-37); Bilirubin, Total 0.3 mg/dL (0.1-1.0); Blood Urea Nitrogen 25 mg/dL (8-24); Bun/Creatinine Ratio 22.5 (12.0-20.0); CO2, Blood 42 mmol/L (21-32); Chloride, Blood 101 mmol/L (98-108); Creatinine, Blood 1.11 mg/dL (0.40-1.00); Globulin, Blood 2.9 g/dL (2.2-4.0); Glomerular Filtration Rate 47 (60-); Glucose, Blood 163 mg/dL (70-99); Potassium, Blood 3.5 mmol/L (3.5-5.5); Sodium, Blood 147 mmol/L (136-145); Total Protein, Blood 5.9 g/dL (6.4-8.2); Troponin I <0.015 ng/mL (0.000-0.040)
[2021-07-22] MEDS ORDERED: Prednisone20 MG PO (11:54)
== END 2021-07-22 12:20 | disposition home or self-care (01) ==
LOC: ER 09:33
PROVIDERS: Emergency Medicine
DX: J44.1 Chronic obstructive pulmonary disease with (acute) exacerbation (principal); E03.9 Hypothyroidism, unspecified; E78.5 Hyperlipidemia, unspecified; J96.11 Chronic respiratory failure with hypoxia; G50.0 Trigeminal neuralgia; I50.32 Chronic diastolic (congestive) heart failure; I10 Essential (primary) hypertension; Z88.1 Allergy status to other antibiotic agents; Z88.0 Allergy status to penicillin; Z79.52 Long term (current) use of systemic steroids; Z79.899 Other long term (current) drug therapy; Z85.3 Personal history of malignant neoplasm of breast
CPT/HCPCS: 36415; 71045; 80053; 83880; 84484; 85025; 93005; 93010; 94640; 96374; 99285-25; J2930